=== PATIENT | female | born 1950 | race Hispanic/Latino ===

== ENCOUNTER 2022-05-07 15:44 | Emergency (ER) | payer BC ==
[~2022-05-07] VITALS: Ht 157.5 cm; Wt 81.6 kg
== END 2022-05-07 17:13 | disposition home or self-care (01) ==
LOC: ER 16:10
DX: R50.9 Fever, unspecified (principal); I10 Essential (primary) hypertension; E78.5 Hyperlipidemia, unspecified; F41.9 Anxiety disorder, unspecified
CPT/HCPCS: 99282

== ENCOUNTER → 2022-05-10 | Outpatient (CLI) | payer BC | LOC: RAD 11:57 | PROVIDERS: ATTEND Internal Medicine | DX: S23.3XXA Sprain of ligaments of thoracic spine, initial encounter (principal) | CPT/HCPCS: 72070 ==